=== PATIENT | male | born 1970 | race Caucasian/White ===

== ENCOUNTER 2019-06-20 12:03 | Emergency (ER) | payer MEDICAID ==
[~2019-06-20] VITALS: Ht 182.9 cm; Wt 92.4 kg
[2019-06-20 12:08] VITALS: BP 135/91
[2019-06-20] MEDS ORDERED: HYDROcodone/APAP 5/325 TABLET PO ONE (13:30)
[2019-06-20] MEDS ORDERED: OXYcodone/APAP 5/325MG TABLET ONE (13:38)
[2019-06-20] MEDS ORDERED: HYDROcodone/APAP 5/325 TABLET ONE (13:42)
--- NOTE | 2019-06-20 13:57 | NUR ---
meds per mar for pain. crutches/knee immob per dania. [place] in room for dc info. as
== END 2019-06-20 14:05 | disposition home or self-care (01) ==
LOC: ED 13:59
DX: S83.92XA Sprain of unspecified site of left knee, initial encounter (principal); X58.XXXA Exposure to other specified factors, initial encounter; Y93.39 Activity, other involving climbing, rappelling and jumping off; Y92.009 Unspecified place in unspecified non-institutional (private) residence as the place of occurrence of the external cause; Y99.8 Other external cause status
CPT/HCPCS: 29505; 99283